=== PATIENT | female | born 1975 | race Caucasian/White ===

== ENCOUNTER → 2020-06-27 | Outpatient (CLI) | payer OTHER | LOC: M.RAD 10:20 | PROVIDERS: ATTEND Family Medicine | DX: N63.22 Unspecified lump in the left breast, upper inner quadrant (principal); N63.21 Unspecified lump in the left breast, upper outer quadrant; N63.23 Unspecified lump in the left breast, lower outer quadrant; N64.89 Other specified disorders of breast ==

== ENCOUNTER → 2021-10-20 | Outpatient (CLI) | payer OTHER | LOC: M.RAD 13:58 | DX: Z12.31 Encounter for screening mammogram for malignant neoplasm of breast (principal) ==